=== PATIENT | female | born 1985 | race African-American/Black ===

== ENCOUNTER 2018-11-17 12:20 | Emergency (ER) | payer OTHER ==
[~2018-11-17] VITALS: Ht 170.2 cm; Wt 54.4 kg
[2018-11-17 12:55] LABS: ABSOLUTE NEUTROPHILS 2.4 thou/uL (1.4-8.2); BASOPHILS 2.1 % (0.0-2.0)
[2018-11-17 13:01] LABS: ANION GAP 9 mmol/L (7-16); BUN 7 mg/dL (7-18); CALCIUM 9.2 mg/dL (8.5-10.1); CHLORIDE 103 mmol/L (98-107); CO2 27 mmol/L (21-32); CREATININE 0.7 mg/dL (0.6-1.0); GLUCOSE 108 mg/dL (74-106); POTASSIUM 3.5 mmol/L (3.5-5.1); SODIUM 139 mmol/L (136-145)
[2018-11-17 13:11] LABS: ALBUMIN 4.1 g/dL (3.4-5.0); EOSINOPHILS 1.7 % (0.0-3.0); HEMOGLOBIN 8.6 gm/dL (12.0-15.0); LYMPHOCYTES 38.9 % (24.0-44.0); MAGNESIUM 1.9 mg/dL (1.8-2.4); MCH 22.5 pg (26.0-34.0); MCHC 30.8 g/dL (28.0-37.0); MONOCYTES 5.6 % (1.0-8.0); PLATELET COUNT 226 thou/uL (150-400); POLYS 51.7 % (36.0-66.0); RBC 3.83 mil/uL (4.20-5.00); RDW 19.2 % (10.5-14.5); SGOT 14 U/L (15-37); SGPT 11 U/L (30-65); TOTAL BILIRUBIN 0.4 mg/dL (<0.1-1.0); TOTAL PROTEIN 8.1 g/dL (6.4-8.2); TROPONIN-I <0.06 ng/mL (<0.06); WBC 4.6 thou/uL (4.0-11.0)
[2018-11-17] MEDS ORDERED: NAPROSYN500 MG PO (13:33)
[2018-11-17 13:55] LABS: ANISOCYTOSIS 2+; MICROCYTES 2+; PLATELET ESTIMATE NORMAL; SCHISTOCYTES FEW
[2018-11-17 14:18] VITALS: BP 107/65
--- NOTE | 2018-11-21 07:40 | EKG ---
[address] [place] [address] [facility] [place] [address] ELECTROCARDIOGRAM REPORT Name: KRISTEN SEPULVEDA [id number] Admission: 11/17/18 Attend Phys: Discharge: 11/17/18 Date of : 87 Report #: [id number] THIS REPORT FOR: //name// [facility] ED Test Date: 2018-11-17 Test Time: 12:26:13 Pat Name: KRISTEN SEPULVEDA Department: Room: Gender: F [employer]: [employer] : 1985 Requested By: Yevgeniy Dale Order Number: [id number] MD: Juan Rasheed Measurements Intervals [place] Rate: 76 P: 84 UT: 167 QRS: 69 QRSD: 75 T: 56 QT: 364 QTc: 410 Interpretive Statements Sinus rhythm Poor R wave progression No previous ECG available for comparison Electronically Signed On 11-21-2018 7:40:09 CDT by Juan Rasheed [email or web address] <ELECTRONICALLY SIGNED> By: Juan Rasheed MD, [facility] 11/21/18 0740 1226 1226 Juan Rasheed MD, FACC /EPI
== END 2018-11-17 14:18 | disposition home or self-care (01) ==
LOC: ER 12:20
PROVIDERS: Emergency Medicine
DX: R07.89 Other chest pain (principal)